=== PATIENT | female | born 1950 | race Caucasian/White ===

== ENCOUNTER → 2016-07-24 | Day surgery (SDC) | payer MEDICARE ==
[~2016-07-24] MED LIST: (NONE)300 MCG BC; ALLERGY10 M1 PO; APRISO0.375 GM PO; ASACOL400 MG PO; ASPIRIN325 M1 PO; CALCIUM + D 6001 TA1 PO; CALCIUM 500 + D1 TAB PO; CALCIUM PO; CLARITIN10 MG PO; DELZICOL400 M1 PO; DYAZIDE 37.5/251 CAP PO; FAMOTIDINE PO; FLONASE ALLERG9.9 ML; FLUOXETINE HCL20 M1 PO; KCL PO; LODINE PO; LODINE400 MG PO; NASAL SPRAY30 M1; PAXIL PO; PHENERGAN PO; POTASSIUM 99 MG; PREDNISONE PO; PROZAC PO; TRIAMTERENE/HCT1 CA3 PO; VICODIN 5/500 T1 TAB PO; VITAMIN D PO; [UNRECOGNIZED DRUG - OTHER] PO
--- NOTE | ~2016-07-24 | OR ---
Unit #: [id number] #: [id number] Patient: STAN JARRETT [id number] [address] [place], [place] [address] [id number] O MR#: [id number] NAME: STAN JARRETT ROOM: Date of Procedure: 07/24/2016 Admission Date: 07/24/2016 Surgeon: Marvin Krishnamurthy M.D. : 1950 Attending Physician: Marvin Krishnamurthy M.D. Primary Care Physician: Neri Denson D.O. OPERATIVE REPORT PREOPERATIVE DIAGNOSES The patient came for surveillance colonoscopy. She has pancolitis more than 7 years, as well as history of colonic polyps in the past. PROCEDURES PERFORMED Colonoscopy and polypectomy and colonoscopy with biopsies. POSTOPERATIVE DIAGNOSES 1. The patient has single sessile polyp in the transverse colon. This was about 6 to 7 mm in size and was removed using snare polypectomy. 2. Rest of the examination up to cecum and terminal ileum was normal. The quality of the prep was excellent. Biopsies were obtained from the cecum and right colon, transverse colon, as well as sigmoid and descending colon in three separate bottles and sent for histology to look for any evidence of dysplasia. RECOMMENDATIONS 1. Follow up the results of polyp histology. 2. Consider repeat examination in 3 years. SEDATION USED MAC. DESCRIPTION OF PROCEDURE Following detailed extension of potential risks and complications of a colonoscopy, namely perforation, bleeding, and complication related to sedation, the patient was brought to GI lab and laid in the left lateral decubitus position. A digital rectal examination was performed, which was normal. Lubricated tip of the Olympus video colonoscope was inserted through the anus and advanced under direct vision. The scope was advanced past rectosigmoid into descending colon. No diverticula were noticed in this area. The scope tip was then navigated all the way up to cecum with visualization of the ileocecal valve and the appendiceal orifice. Preparation was excellent with good visualization and photodocumentation was obtained. Last few inches of the terminal ileum were also visualized after intubation of the ileocecal valve and appeared normal. Successive segments of the colonic mucosa were examined upon withdrawal and appeared unremarkable except for a single sessile polyp in the mid transverse colon. This was about 6 to 7 mm in size. It was removed using snare cautery polypectomy. The polyp was retrieved and sent for histology. No other abnormalities were noted. The patient did not have any diverticulosis nor any hemorrhoids. Biopsies were obtained from the Unit #: [id number] #: [id number] Patient: STAN JARRETT cecum, right colon, transverse colon, and from sigmoid and descending colon and sent in three separate bottles to look for any evidence of dysplasia. The scope was then withdrawn and the patient returned to the recovery area. She tolerated the procedure without any postprocedure complications. Dictated by... Jorden Merritt/vish TD: 07/24/2016 12:44 JOB #: [id number] CC: Neri Denson D.O. OPERATIVE REPORT X Marvin Krishnamurthy MD X PROCEDURE OPERATIVE NOTE
== END | disposition home or self-care (01) ==
LOC: COPS 06:17
DX: Z12.11 Encounter for screening for malignant neoplasm of colon (principal); D12.3 Benign neoplasm of transverse colon; K51.00 Ulcerative (chronic) pancolitis without complications; M19.90 Unspecified osteoarthritis, unspecified site; Z91.013 Allergy to seafood; I10 Essential (primary) hypertension
CPT/HCPCS: 88305; J2250